=== PATIENT | female | born 1980 | race Caucasian/White ===

== ENCOUNTER 2016-02-14 07:33 | Day surgery (SDC) | payer BC ==
[~2016-02-14 07:33] MED LIST: RINGERS SOLUTION,LACTATED 1,000 ML IV PRN
[2016-02-14] MEDS ORDERED: LIDOCAINE HCL/EPINEPHRINE 30 ML VIAL IJ ONE (09:05)
[2016-02-14] MEDS ORDERED: RINGERS SOLUTION,LACTATED 1,000 ML IV ONE (09:50)
[2016-02-14] MEDS ORDERED: LIDOCAINE HCL/EPINEPHRINE 50 ML VIAL IJ ONE (09:55)
--- NOTE | 2016-02-14 10:43 | OR ---
Operative Report - Dictated Report Narrative: DATE OF PROCEDURE: 02/14/2016 INDICATION: 35-year-old with chronic left lower quadrant pelvic pain and dysmenorrhea PREOPERATIVE DIAGNOSIS: Chronic left lower quadrant pain, dysmenorrhea unresponsive to conservative therapy POSTOPERATIVE DIAGNOSIS: Same with possible endometriosis PROCEDURE: Diagnostic laparoscopy, excisional peritoneal biopsy of possible endometriosis, left ovarian cystotomy, bilateral salpingectomy, diagnostic hysteroscopy, dilation and curettage SURGEON: Junaid Schultz D.O. CASHIER AND WAITER/WAITRESS: None ANESTHESIA: Gen. endotracheal ESTIMATED BLOOD LOSS: Minimal URINE OUTPUT: Not measured FLUID REPLACEMENT: 800 mL of crystalloid FINDINGS: Normal-appearing anterior and posterior cul-de-sac, appendix, and right ovarian fossa. Evidence of bilateral tubal ligation with retained Falope rings (1 adherent to the left cornua of the uterus, the right Falope ring dangling from the mesosalpinx). A punctate lesion on the left ovarian fossa overlying the left ureter causing peritoneal retraction. Absent fallopian tube stub on the left side. Corpus luteal cyst on the left ovary. Normal appearing uterine cavity sounding to 9.5 cm. SPECIMEN(S): Segments of fallopian tubes, follow-up rings, peritoneum from left ovarian fossa suspicious for endometriosis TECHNIQUE: The patient was taken to the operating room and placed in dorsal lithotomy position after SCDs were placed and adequate general anesthesia obtained. After sterile prep and drape, the anterior lip of the cervix was grasped with a long Allis clamp and a Valchev manipulator was inserted into the cervical canal and attached to the Allis clamp as a means to manipulate the uterus. Gloves were changed and attention was turned to the abdomen where the umbilicus was injected with a lidocaine epinephrine solution through the underlying layers. Scalpel was used to score the skin and a 5 mm non-bladed trocar was inserted via direct technique under direct visualization. Pneumoperitoneum was created with CO2 gas. An 8 mm non-bladed trocar was inserted suprapubically and another 5 mm non-bladed trocar was inserted in the left lower quadrant in a similar fashion. Through these 3 ports the surgery was carried out with findings as noted above. Using Kleppinger's, the mesosalpinx of the remaining tubal segments were coagulated, transected with laparoscopic scissors, then removed through the 8 mm port. Using laparoscopic graspers, the peritoneum over the left ovarian fossa was tented up away from the underlying structures while the periphery was coagulated with the Kleppinger 's and excised with laparoscopic scissors. The ovarian cortex of the left ovarian cyst was coagulated with the Kleppinger's then perforated draining clear fluid from the cyst. The CO2 gas was removed from the abdominal cavity and all trochars were removed under direct visualization. The skin of all incisions was closed with 4-0 Monocryl and Exophin adhesive dressing. Attention was turned to the pelvis where the Valchev manipulator was removed and a 5 mm hysteroscope was inserted through the cervical canal into the uterine cavity with findings as noted above. The hysteroscope was removed and the uterus was sounded to 9.5 cm. A #2 curet was used to sample the entire uterine cavity. The hysteroscope was reinserted to assure thorough sampling. All instruments were removed from the cervix and vagina and the patient was awakened and transferred to postanesthesia care unit in good condition. Sponge , lap, instrument, and needle count correct x 2. DISPOSITION: The patient was transferred to postanesthesia care unit in good condition.
[2016-02-14] MEDS ORDERED: MORPHINE SULFATE 2 MG/ML DISP.SYRIN IV PRN (11:40)
[2016-02-14] MEDS ORDERED: oxyCODONE HCL/ACETAMINOPHEN 1 TAB TABLET PO ONE (12:15)
[2016-02-14] MEDS ORDERED: IBUPROFEN 800 MG TABLET PO ONE (12:15)
[2016-02-14 13:55] VITALS: BP 148/77
== END 2016-02-14 07:34 | disposition home or self-care (01) ==
LOC: AMB 07:33 → MERGE 08:00
PROVIDERS: ATTEND Obstetrics & Gynecology
PROC: 0UDB8ZX Extraction of Endometrium, Via Natural or Artificial Opening Endoscopic, Diagnostic (ICD-10-PCS; 2016-02-14)
PROC: 0U914ZX Drainage of Left Ovary, Percutaneous Endoscopic Approach, Diagnostic (ICD-10-PCS; principal; 2016-02-14 08:45)
PROC: 0UT74ZZ Resection of Bilateral Fallopian Tubes, Percutaneous Endoscopic Approach (ICD-10-PCS; 2016-02-14 08:45)
DX: N83.292 Other ovarian cyst, left side (principal); N94.6 Dysmenorrhea, unspecified; N92.0 Excessive and frequent menstruation with regular cycle